=== PATIENT | male | born 1990 | race African-American/Black ===

== ENCOUNTER 2019-06-05 20:30 | Emergency (ER) | payer OTHER ==
[~2019-06-05] VITALS: Ht 180.3 cm; Wt 68.0 kg
[2019-06-05 22:24] VITALS: BP 126/68
--- NOTE | 2019-06-05 22:47 | NUR ---
Patient discharged to home in stable condition. Written and verbal after care instructions given. Patient verbalizes understanding of instruction.
== END 2019-06-05 22:47 | disposition home or self-care (01) ==
LOC: ER 20:31
DX: J02.8 Acute pharyngitis due to other specified organisms (principal); B97.89 Other viral agents as the cause of diseases classified elsewhere; J45.909 Unspecified asthma, uncomplicated; Z60.2 Problems related to living alone; Z76.0 Encounter for issue of repeat prescription
CPT/HCPCS: J7030